=== PATIENT | male | born 1940 | race Caucasian/White ===

== ENCOUNTER 2017-03-31 06:23 | Inpatient (IN) ==
[2017-03-31] MEDS: D5-1/2NS with KCL 20mEq 1,000 ML IV SCH ×2 (07:26→18:01)
[2017-03-31 08:05] VITALS: BMI 28.0
[2017-03-31] MEDS ORDERED: ONDANSETRON 4 MG/2 ML INJECTION IVP PRN (09:18)
--- NOTE | 2017-03-31 10:22 | Anesthesia Preoperative Report ---
Anesthesia Preoperative Record - Date and Time Date: 03/31/17 Preoperative Diagnosis: GI Bleed Proposed Procedure: EGD NPO Since Date: 03/30/17 NPO Since Time: 22:00 Allergies/Adverse Reactions: Allergies Allergy/AdvReac Type Severity Reaction Status Date / Time No Known Allergies Allergy Verified 03/31/17 07:34 - Vital Signs Vital Signs: Temperature 96 F L 03/31/17 07:26 Pulse Rate 57 L 03/31/17 09:00 Respiratory Rate 20 03/31/17 09:00 Blood Pressure 112/59 03/31/17 09:00 Pulse Oximetry 100 03/31/17 09:00 Height and Weight: Height 1.83 m Weight 93.8 kg Body Mass Index 28.0 - Medications Inpatient Medications: Current Medications Potassium Chloride/Dextrose/Sod Cl (D5-1/2ns With Kcl 20meq) 1,000 mls @ 100 mls/hr IV .Q10H POLA Last Admin: 03/31/17 07:26 Dose: 100 mls/hr Ondansetron HCl (Zofran) 4 - 8 mg IVP Q6H PRN PRN Reason: Nausea &/or vomiting Home Medications: Home Medications Medication Instructions Recorded Confirmed Type Aspirin [Aspirin EC] 81 mg PO DAILY #0 01/16/13 03/31/17 History Protonix (Pantoprazole)40 mg 40 mg PO DAILY #30 tab 03/03/17 03/31/17 History tablet,delayed release simvastatin 40 mg tablet 40 mg PO HS 03/03/17 03/31/17 History - Medical History Cardiovascular: Reports: Coronary Artery Disease, Hypertension, Myocardial Infarction Gastrointestional: Reports: Gastroesophageal Reflux Disease Other History: Reports: Blood Transfusions - Surgical History Cardiac Surgeries/Treatments: Reports: Coronary Artery Bypass Graft (4 bypasses 2011) GI Surgery/Treatments: Reports: Hernia Repair (umblical), Colonoscopy (03/19/17) Musculoskeletal Surgery/Tx: Reports: Total Hip Replacement (L 2005), Other ( bone scraping in foot for infection) - Social History Smoking Status: Never smoker Hx Chewing Tobacco Use: No Second Hand Exposure: No Substance Use Type: does not use Alcohol Intake Frequency: does not drink - Pertinent Findings Laboratory: CBC and BMP 03/31/17 08:11 EKG Rhythm: Normal Sinus Rhythm - Physical Exam Respiratory Exam: Present: lungs clear, bilateral breath sounds equal Cardiovascular Exam: Present: regular rate and rhythm, no murmur - Airway Assessment Mallampati Score: II TMD: 3 Fingerbreadths Teeth: chipped teeth/crowns Overall Assessment: no airway concerns - ASA ASA Score: 3 - Plan Anesthesia: General TIVA - Discussion Discussion: Discussed risks/options/alternatives of anesthesia and questions answered. Patient consents. Nursing pain assessment noted. Attestation Statement: Prior to the delivery of any anesthetic medication, I examined the patient, developed the plan, obtained the patient's consent and discussed the risk and benefits of the procedure with the patient/guardian. - Additional Information Seen by Anesthesia: Yes
[2017-03-31] MEDS ORDERED: LIDOCAINE VISCOUS 2% ORAL LIQUID 15ml PO ONE ×2 (10:39→12:00)
--- NOTE | 2017-03-31 10:48 | General Surgery Procedure Note ---
Date of Procedure: 03/31/17 Surgeon: Nancie Postoperative Diagnosis: Acute lower GI tract bleeding Procedure: EGD Estimated Blood Loss: See Anesthesia Record.
--- NOTE | 2017-03-31 10:59 | History and Physical ---
HISTORY OF PRESENT ILLNESS This patient is 76 years old. This patient underwent a total colonoscopy with polypectomy on 03/19/[address] Canada at [facility]. The patient did have a sessile polyp removed from the cecum at the time of the procedure. There was no difficulty with removal of the polyp at the time of the procedure. There was no bleeding at the time of the polyp removal. Pathology report diagnosis on this polyp did show a diagnosis of sessile serrated adenoma. The patient did well following the total colonoscopy procedure from 03/19/2017 up until the morning of 03/31/2017. The patient did not have any rectal bleeding following the colonoscopy up until 03/31/2017. The patient did have a bloody bowel movement at 0200 hours on 03/31/2017. There was some dark red blood passed from the rectum at this time along with some blood which looked a little fresher. The patient felt weak and diaphoretic. An ambulance was called. The patient was transported by ambulance from his home to [facility] at [place], [place]. The patient did undergo evaluation at [facility] at [place], [place]. Vital signs were stable at that time. Hemoglobin was 12.6 and hematocrit was 37.7 at 0420 hours at the time of evaluation at the emergency room at [facility] at [place], [place]. It was thought at the time of this emergency room evaluation that the patient might be having some bleeding from the polypectomy site. The patient did ask to be transferred from the hospital at [facility] to [facility] where he underwent the total colonoscopy with polypectomy procedure for further evaluation of the rectal bleeding. The patient has now been transferred from [facility] at [place], [place] to [facility] and is admitted to the Intensive Care Unit at [facility]. The patient states he has had no further rectal bleeding since the episode at 0200 hours this morning. He is having no abdominal pain. The patient did have a CBC performed on 01/26/2017 prior to the colonoscopy procedure. Hemoglobin was 14.9 and hematocrit was 45.9 at that time. PAST MEDICAL HISTORY Previous Operations. 1. Incision and drainage of abscess at right foot on 10/07/[address] Gerard Buckner at [facility] at [place], [place]. Discharge diagnosis was abscess at right foot. 2. Umbilical hernia repair on 09/11/[address] Sergei Womack at [facility]. 3. Left total hip replacement on 02/23/[address] Leiva at [facility] at [place], [place]. Postoperative diagnosis was degenerative arthritis at left hip. 4. Cardiac catheterization in November [address] Duckworth at [facility] at [place], [place]. The patient was having an acute myocardial infarction at this time. 5. Four-vessel coronary artery bypass operation in November [address] Casas at [facility] at [place], [place]. The patient was having an acute myocardial infarction at this time. 6. Repair of recurrent incarcerated umbilical hernia on 01/17/[address] Canada at [facility] at [place], [place]. Postoperative diagnosis was recurrent incarcerated umbilical hernia. 7. Total colonoscopy with polypectomy on 03/19/[address] Canada at [facility] at [place], [place]. The patient did have a sessile polyp removed from the cecum with a polypectomy at this time. Pathology report diagnosis on this polyp was sessile serrated adenoma polyp. CURRENT MEDICATIONS 1. Aspirin 81 mg one p.o. daily. 2. Protonix 40 mg one p.o. daily. 3. Simvastatin 40 mg one p.o. daily in the a.m. ALLERGY HISTORY The patient has no known allergies to medications. PHYSICAL EXAMINATION VITAL SIGNS: Pulse is 58. Blood pressure is 112/59. Respiratory rate is 19. Height is 1.83 meters. Weight is 93.8 kg. BMI is 28 kg/m2. HEAD, EYES, EARS, NOSE AND THROAT: No abnormalities noted. NECK: No neck masses. CHEST: The patient does have an old median sternotomy incision scar. Lung sounds are clear. HEART: Regular rhythm. No murmurs. ABDOMEN: The patient does have an old transversely oriented supraumbilical incision scar. No abdominal masses. No abdominal tenderness. RECTUM: No rectal masses. There is a small amount of old black blood at the rectum. EXTREMITIES: No abnormalities noted. LABORATORY DATA Hemoglobin was 14.9 and hematocrit was 45.9 on 01/26/2017. Hemoglobin was 12.6 and hematocrit was 37.7 at 0420 hours at the emergency room at [facility] at [place], [place]. Hemoglobin is 12.4 and hematocrit is 37.5 at 0811 hours at [facility]. Platelet count is 253,000. IMPRESSION 1. Acute lower gastrointestinal tract bleeding. 2. Status post total colonoscopy with polypectomy on 03/19/2017 with removal of a sessile polyp from the cecum at this time. 3. Coronary artery disease. 4. Hyperlipidemia. 5. Gastroesophageal reflux disease. PLAN Admit patient to [facility] at this time for observation. The patient will be monitored for gastrointestinal tract bleeding. The patient will be kept n.p.o. for now. Hemoglobin and hematocrit will be monitored. Vital signs will be monitored. The patient will probably undergo esophagogastroduodenoscopy and colonoscopy during the hospitalization to look for the source for the acute gastrointestinal tract bleeding. If there is bleeding from the polypectomy site, this might be able to be controlled with argon beam coagulation of any bleeding point at the polypectomy site. PATIENT EDUCATION I did talk with the patient about the possibility of undergoing esophagogastroduodenoscopy and colonoscopy during this hospitalization. Expected benefits were reviewed. Alternatives were reviewed including simple observation and monitoring of the patient. Potential risks and complications were reviewed. The patient does appear to understand all of this. MTDD
[2017-03-31] MEDS ORDERED: LR 1,000 ML IV SCH (11:00)
[2017-03-31] MEDS ORDERED: LIDOCAINE 5% CREAM 15gm TOP PRN (11:14)
[2017-03-31] MEDS ORDERED: POLYETHYL. GLYCOL 3350 BOTTLE 238 GM PO ONE (11:14)
--- NOTE | 2017-03-31 11:15 | Anesthesia Postoperative Note ---
- Date and Time Date: 03/31/17 Time: 11:15 - Status Patient Participated in Evaluation: Patient Participated in Person Vital Signs: Temperature 96.4 F L 03/31/17 11:05 Pulse Rate 65 03/31/17 11:03 Respiratory Rate 16 03/31/17 11:03 Blood Pressure 104/55 03/31/17 11:03 Pulse Oximetry 100 03/31/17 11:03 Respiratory Function: Airway Patent Cardiovascular Function: Regular Pulse EKG Rhythm: Normal Sinus Rhythm Mental Status: Alert and Oriented Pain Intensity: 0 Hydration: IV Infusing Complications During Recover: None Apparent - Follow-Up Instructions Instructions: Per Surgeon
[2017-03-31] MEDS ORDERED: PROPOFOL 500 MG/50 ML IV ONE (12:00)
--- NOTE | 2017-03-31 14:40 | Operative Note ---
DATE OF OPERATION 03/31/2017 PREOPERATIVE DIAGNOSES 1. Acute gastrointestinal tract bleeding. 2. Status post total colonoscopy with polypectomy with removal of sessile polyp from cecum on 03/19/2017. POSTOPERATIVE DIAGNOSES 1. Hiatal hernia. 2. Acute lower gastrointestinal tract bleeding. 3. Status post total colonoscopy with polypectomy with removal of sessile polyp from cecum on 03/19/2017. OPERATION Esophagogastroduodenoscopy SURGEON Mainor Canada MD ANESTHESIA TIVA ASA CLASS 3 FINDINGS Mucosa at the esophagus, stomach and duodenum appeared normal. There was no bright red blood or old blood anywhere at the upper gastrointestinal tract. No source for bleeding which would lead to acute gastrointestinal tract blood loss was found anywhere at the upper gastrointestinal tract. The patient does have a moderate size hiatal hernia. Findings were otherwise normal throughout the upper gastrointestinal tract. DESCRIPTION OF OPERATION The patient was brought to the endoscopy room. The patient was kept in his ICU bed in the endoscopy room. The patient was placed in left lateral recumbent position in the ICU bed. The patient was premedicated with intravenous sedation medication administered by the nurse pricing actuary. The Olympus upper GI endoscope was used. The upper GI endoscope was introduced into the esophagus. The upper GI endoscope was advanced down through the esophagus and stomach and into the duodenum. The upper GI endoscope was then withdrawn from the duodenum back into the stomach. The upper GI endoscope was retroflexed and the gastroesophageal junction was viewed from below. The upper GI endoscope was straightened out. Stomach was examined further. The upper GI endoscope was then withdrawn out through the stomach and esophagus and removed from the patient. Findings throughout procedure were as described above. The patient did continue to receive intravenous sedation medication administered by the nurse pricing actuary throughout the operation. The patient did tolerate the operation well. YANYD
--- NOTE | 2017-03-31 15:35 | XRay Report ---
Indication: fall PROCEDURE: XR knee LT 2V: Encounter: Initial Comparison: December 06, 2014 Findings: There is no acute fracture, dislocation or malalignment identified. Mild lateral compartment joint space narrowing is worsened. Small osteophytes. No gross joint effusion. Impression: No acute fracture. Mild to moderate lateral degenerative change. .
[2017-03-31] MEDS ORDERED: ACETAMINOPHEN 500 MG TABLET PO PRN (17:45)
[2017-03-31] MEDS ORDERED: MAGNESIUM CITRATE 296ml PO ONE (17:48)
[2017-03-31] MEDS: SIMVASTATIN 40 MG TABLET PO SCH (21:01)
[2017-04-01] MEDS: D5-1/2NS with KCL 20mEq 1,000 ML IV SCH ×2 (03:50→17:11)
[2017-04-01] MEDS: PANTOPRAZOLE 40 MG TABLET PO SCH (06:27)
--- NOTE | 2017-04-01 10:54 | Anesthesia Preoperative Report ---
Anesthesia Preoperative Record - Date and Time Date: 04/01/17 Preoperative Diagnosis: GI Bleed Proposed Procedure: Colonoscopy NPO Since Date: 03/31/17 Allergies/Adverse Reactions: Allergies Allergy/AdvReac Type Severity Reaction Status Date / Time No Known Allergies Allergy Verified 03/31/17 07:34 - Vital Signs Vital Signs: Temperature 96.5 F L 03/31/17 16:51 Pulse Rate 56 L 04/01/17 05:01 Respiratory Rate 19 04/01/17 05:01 Blood Pressure 118/58 04/01/17 05:01 Pulse Oximetry 99 04/01/17 05:01 Height and Weight: Height 1.83 m Weight 93.8 kg Body Mass Index 28.0 - Medications Inpatient Medications: Current Medications Acetaminophen (Tylenol) 500 - 1,000 mg PO Q6H PRN PRN Reason: Discomfort Last Admin: 03/31/17 18:08 Dose: 500 mg Aspirin (Ecotrin) 81 mg PO DAILY [facility] Potassium Chloride/Dextrose/Sod Cl (D5-1/2ns With Kcl 20meq) 1,000 mls @ 100 mls/hr IV .Q10H [facility] Last Infusion: 04/01/17 07:00 Dose: 100 mls/hr Lidocaine (Anecream5) 1 applic TOP PRN PRN Ondansetron HCl (Zofran) 4 - 8 mg IVP Q6H PRN PRN Reason: Nausea &/or vomiting Pantoprazole Sodium (Protonix Tab) 40 mg PO ACB [facility] Last Admin: 04/01/17 06:27 Dose: 40 mg Simvastatin (Zocor) 40 mg PO [facility] Last Admin: 03/31/17 21:01 Dose: 40 mg Home Medications: Home Medications Medication Instructions Recorded Confirmed Type Aspirin [Aspirin EC] 81 mg PO DAILY #0 01/16/13 03/31/17 History Protonix (Pantoprazole)40 mg 40 mg PO DAILY #30 tab 03/03/17 03/31/17 History tablet,delayed release simvastatin 40 mg tablet 40 mg PO HS 03/03/17 03/31/17 History Is Patient on Beta Cassy?: No - Medical History Cardiovascular: Reports: Coronary Artery Disease, High Cholesterol Gastrointestional: Reports: Gastroesophageal Reflux Disease, Gastrointestinal Bleeding - Surgical History Cardiac Surgeries/Treatments: Reports: Cardiac Catheterization, Coronary Artery Bypass Graft (4 bypasses 2011) GI Surgery/Treatments: Reports: Hernia Repair (umblical), Colonoscopy (03/19/17) Musculoskeletal Surgery/Tx: Reports: Total Hip Replacement (L 2005), Other ( bone scraping in foot for infection) Anesthesia Reactions: None Hx Family Anesthesia Reaction: No History of Motion Sickness: No - Social History Smoking Status: Never smoker Hx Chewing Tobacco Use: No Second Hand Exposure: No Substance Use Type: does not use Alcohol Intake Frequency: does not drink - Pertinent Findings Laboratory: CBC and BMP 04/01/17 04:22 EKG Rhythm: Normal Sinus Rhythm - Physical Exam Respiratory Exam: Present: lungs clear, bilateral breath sounds equal Cardiovascular Exam: Present: regular rate and rhythm, no murmur - Airway Assessment Mallampati Score: II TMD: 3 Fingerbreadths Teeth: chipped teeth/crowns Overall Assessment: no airway concerns - ASA ASA Score: 3 - Plan Anesthesia: General TIVA - Discussion Discussion: Discussed risks/options/alternatives of anesthesia and questions answered. Patient consents. Nursing pain assessment noted. Attestation Statement: Prior to the delivery of any anesthetic medication, I examined the patient, developed the plan, obtained the patient's consent and discussed the risk and benefits of the procedure with the patient/guardian. - Additional Information Seen by Anesthesia: Yes
[2017-04-01] MEDS ORDERED: PROPOFOL 500 MG/50 ML VIAL IV ONE ×2 (12:08→13:06)
[2017-04-01] MEDS: LR 1,000 ML IV SCH ×2 (12:28→13:26)
[2017-04-01] MEDS ORDERED: EPHEDRINE 50mg/ml INJECTION ONE (12:56)
--- NOTE | 2017-04-01 13:56 | Anesthesia Postoperative Note ---
- Date and Time Date: 04/01/17 Time: 13:56 - Status Patient Participated in Evaluation: Patient Participated in Person Vital Signs: Temperature 97.6 F 04/01/17 08:00 Pulse Rate 74 04/01/17 12:00 Respiratory Rate 35 H 04/01/17 10:45 Blood Pressure 117/63 04/01/17 11:00 Pulse Oximetry 100 04/01/17 11:15 Respiratory Function: Airway Patent Cardiovascular Function: Regular Pulse EKG Rhythm: Normal Sinus Rhythm Mental Status: Alert and Oriented Pain Intensity: 0 Hydration: IV Infusing Complications During Recover: None Apparent - Follow-Up Instructions Instructions: Per Surgeon
--- NOTE | 2017-04-01 14:04 | General Surgery Procedure Note ---
Date of Procedure: 04/01/17 Surgeon: Nancie Postoperative Diagnosis: Acute lower GI tract bleeding from polypectomy site at cecum. Procedure: Total colonoscopy with control of bleeding at polypectomy site at cecum. Estimated Blood Loss: See Anesthesia Record.
--- NOTE | 2017-04-01 14:09 | Progress Note ---
DATE 04/01/2017 HISTORY This patient did undergo esophagogastroduodenoscopy yesterday. No source for gastrointestinal tract bleeding was found at the upper gastrointestinal tract at this procedure. Hemoglobin was 10 and hematocrit was 32.5 at 1346 hours on 03/31/2017. The patient did undergo a colonic lavage bowel prep on 03/31/2017. Hemoglobin was 11.1 and hematocrit was 39.7 at 1804 hours on 03/31/2017. The patient has had no further rectal bleeding throughout the afternoon or evening yesterday. He has had no further rectal bleeding throughout the night last night or this morning. PHYSICAL EXAMINATION VITAL SIGNS: Pulse is 68. Blood pressure is 117/63. Oxygen saturation is 100 % on room air. LABORATORY DATA Hemoglobin is 12 and hematocrit is 37.4 at 0422 hours this morning. IMPRESSION 1. Acute lower gastrointestinal tract bleeding. 2. Status post total colonoscopy with polypectomy with removal of sessile polyp from the cecum on 03/19/2017. PLAN Colonoscopy by Dr. Canada today. YAZAN
[2017-04-01] MEDS: ASPIRIN *EC* 81 MG TABLET PO SCH (18:47)
[2017-04-01] MEDS: SIMVASTATIN 40 MG TABLET PO SCH (21:19)
--- NOTE | 2017-04-01 22:05 | Operative Note ---
DATE OF OPERATION 04/01/2017 PREOPERATIVE DIAGNOSES 1. Status post total colonoscopy with polypectomy with removal of sessile polyp from cecum on 03/19/2017. 2. Acute lower gastrointestinal tract bleeding. POSTOPERATIVE DIAGNOSES 1. Status post total colonoscopy with polypectomy with removal of sessile polyp from cecum on 03/19/2017. 2. Acute lower gastrointestinal tract bleeding from polypectomy site at cecum. OPERATION Total colonoscopy with argon beam coagulation of polypectomy site at cecum and application of Resolution endoscopic hemoclips at polypectomy site at cecum to control bleeding. SURGEON Dr. Canada [facility] ASA Class 3 FINDINGS The patient did have a polypectomy site at the cecum where he underwent removal of a sessile polyp at total colonoscopy on 03/19/2017. Most of the polypectomy site was covered with white fibrinous exudate. There was one bright red area of granulation tissue at one margin of the polypectomy site which looked like a site where the patient had experienced recent acute gastrointestinal tract bleeding. There was no active bleeding from this site occurring as the site was first visualized at total colonoscopy today. The patient did have some induced pulsatile arterial bleeding occur from this site during argon beam coagulation at this site. This area of bright red tissue at the margin of the polypectomy site was thought to be the source of the recent acute lower gastrointestinal tract bleeding. There were no tumors found anywhere at the colon today. No polyps were seen at the colon today. There were no colonic angiodysplasia lesions. There was no inflammatory bowel disease. No other source for recent acute lower gastrointestinal tract bleeding was seen anywhere else at the colon or rectum. The recent acute gastrointestinal tract bleeding had stopped spontaneously prior to the colonoscopy procedure today. There was concern that it would recur from this site without treatment of the source for bleeding at the polypectomy site. DESCRIPTION OF OPERATION The patient was brought to the cystoscopy room. The patient was placed in left lateral recumbent position in his intensive care unit bed in the cystoscopy room. The patient was premedicated with intravenous sedation medication administered by the nurse fish cake maker. The Olympus colonoscope was used. The colonoscope was introduced into the rectum. The colonoscope was advanced up through the rectum and colon all the way up to the cecum. The appendiceal orifice was clearly identified. The ileocecal valve was clearly identified. The polypectomy site at the cecum was easily identified. There was white fibrinous exudate at most of the base of the polypectomy site. There was one area of bright red tissue which looked like granulation tissue at one margin of the polypectomy site. It was thought that this was the site where recent acute lower gastrointestinal tract bleeding had occurred. It was thought that the patient might experience additional bleeding from this site. A decision was made to treat this site at the polypectomy site to attempt to prevent further recurrent bleeding from this site. Argon beam coagulation was first performed at the polypectomy site. The argon beam financial services associate was used at a power setting of 40 cartwright and at a gas flow rate of 2 liters per minute. The area of bright red tissue at the margin of the polypectomy site was coagulated with the argon beam financial services associate. As this was done, the patient experienced some bright red active pulsatile arterial bleeding from this site. This was largely controlled with additional coagulation of this same site with the argon beam financial services associate. After some additional argon beam coagulation there was only some continued oozing of blood from this site. Air was repeatedly aspirated from the cecum and ascending colon as this was done to avoid any overdistention of the cecum and ascending colon. Only brief pulses of coagulation were used at this site. Because of the continued small amount of oozing of blood from this site, a couple of endoscopic hemoclips were applied to the polypectomy site. A [employer] brand, Resolution endoscopic hemoclip applicator was introduced through the operating channel of the colonoscope and advanced out beyond the end of the colonoscope into the lumen of the cecum. A couple of endoscopic Resolution hemoclips were applied to the polypectomy site. These two hemoclips did control the remaining oozing at the polypectomy site and helped close the polypectomy site. The hemoclips were applied at the same area where the patient had undergone argon beam coagulation. This application of the endoscopic hemoclips did appear to complete hemostasis at the bleeding point at the polypectomy site. Irrigation was performed at the polypectomy site. This area was observed. Hemostasis remained satisfactory. The colonoscope was then withdrawn out through the colon and rectum and removed from the patient. Findings throughout the colonoscopy procedure were as described above. The patient did continue to receive intravenous sedation medication administered by the nurse fish cake maker throughout the operation. The patient did tolerate the operation well. YAZAN
[2017-04-02] MEDS: PANTOPRAZOLE 40 MG TABLET PO SCH (06:24)
[2017-04-02 08:38] VITALS: BP 131/67; PULSE 60; RESP 18; TEMP 97.2; O2SAT 98
[2017-04-02] MEDS: ASPIRIN *EC* 81 MG TABLET PO SCH (09:26)
--- NOTE | 2017-04-02 13:17 | Discharge Instructions ---
Discharge Plan - Med Rec/Dispo Prescriptions: Continue Aspirin [Aspirin EC] 81 mg PO DAILY #0 simvastatin 40 mg tablet 40 mg PO HS Protonix (Pantoprazole)40 mg tablet,delayed release 40 mg PO DAILY #30 tab
--- NOTE | 2017-04-02 15:09 | Progress Note ---
DATE 04/02/2017 HISTORY The patient did undergo total colonoscopy with control of a bleeding point at a polypectomy site at the cecum yesterday. The patient then went back to the Intensive Care Unit after that procedure. The patient was started on a clear liquid diet. The rate of administration of intravenous fluids was decreased. The patient was transferred from the Intensive Care Unit out to room on the Surgical Unit late on the afternoon of 04/01/2017. The patient continued to be on a clear liquid diet. The patient has not had any further rectal bleeding in the last 24 hours. His vital signs have remained stable. Hemoglobin and hematocrit remain stable as described below. PHYSICAL EXAMINATION VITAL SIGNS: Temperature is 97.2 degrees axillary. Pulse is 60. Respiratory rate is 18. Blood pressure is 131/67. Oxygen saturation is 98% on room air. ABDOMEN: The abdomen is soft and nontender. LABORATORY DATA Hemoglobin was 10.9 and hematocrit was 33.7 at 0425 hours today. Hemoglobin was 11.6 and hematocrit was 35.8 at 1148 hours today. IMPRESSION 1. Recent acute lower gastrointestinal tract bleeding from polypectomy site at cecum which appears to be resolved at this time. 2. Mild acute GI tract blood loss anemia which appears to be stable at this time. PLAN Dismiss patient from [facility] today. DISCHARGE MEDICATIONS Resume medications which the patient was taking prior to admission to the hospital. DISCHARGE DISPOSITION Further followup with Dr. Nancie bowman. any recurrence of the acute lower GI tract bleeding. YAZAN
--- NOTE | 2017-04-06 18:19 | Discharge Summary ---
DISCHARGE DIAGNOSES 1. Acute lower gastrointestinal tract bleeding from polypectomy site at cecum. 2. Mild acute GI tract blood loss anemia. 3. Hiatal hernia. 4. Gastroesophageal reflux disease. 5. Coronary artery disease. 6. Hyperlipidemia. OPERATIONS 1. Esophagogastroduodenoscopy on 03/31/2017. 2. Total colonoscopy with argon beam coagulation of polypectomy site at cecum and application of Resolution endoscopic hemoclips at polypectomy site at cecum to control bleeding on 04/01/2017. HOSPITAL COURSE This patient did have a CBC performed on 01/26/2017. Hemoglobin was 14.9 and hematocrit was 45.9 at that time. The patient was admitted to [facility] by Dr. Canada on 03/31/2017. The patient was noted at the time of admission to the hospital to have undergone total colonoscopy with polypectomy on 03/19/2017 with removal of a sessile polyp from the cecum. The patient was known at the time of admission to [facility] to have chronic medical problems including coronary artery disease, hyperlipidemia and gastroesophageal reflux disease. The patient was admitted to the intensive care unit at the time of admission to [facility]. Details of history and physical examination findings at the time of admission to the hospital can be found in the dictated admission history and physical examination report in the chart. Hemoglobin was 12.4 and hematocrit was 37.5 at the time of admission to [facility] on 03/31/2017. The patient was kept n.p.o. at the time of admission. Vital signs were monitored. The patient did undergo esophagogastroduodenoscopy by Dr. Canada on 03/31/2017. The patient was found to have a hiatal hernia at the time of this procedure. There was no evidence of gastrointestinal tract bleeding from the upper gastrointestinal tract at the time of this procedure. Hemoglobin and hematocrit continued to be monitored. Hemoglobin was 10 and hematocrit was 32.5 at 1346 hours on 03/31/2017. The patient did undergo a colonic lavage bowel prep on 03/31/2017 in preparation for colonoscopy on the following day. Hemoglobin was 11.1 and hematocrit was 39.7 at 1804 hours on 03/31/2017. Vital signs remained stable. The patient had no further rectal bleeding throughout the afternoon and evening of 2016. The patient had no further rectal bleeding throughout the night of 03/31/2017 or the morning of 04/01/2017. Hemoglobin was 12 and hematocrit was 37.4 at 0422 hours on the morning of 04/01/2017. The patient did undergo total colonoscopy by Dr. Canada on 04/01/2017. The patient was known to have recently undergone total colonoscopy with polypectomy with removal of a sessile polyp from the cecum on 03/19/2017. The patient was found to have an area suspicious as a site for recent bleeding at the polypectomy site when he underwent the total colonoscopy procedure on 04/01/2017. There was no active bleeding from this site but it was thought that this was the site where the patient had undergone the bleeding at the time of admission to the hospital. The patient did therefore undergo total colonoscopy with argon beam coagulation of the polypectomy site at the cecum and application of Resolution endoscopic hemoclips at the polypectomy site at the cecum to prevent any further recurrent bleeding when he underwent the total colonoscopy procedure on 2016. The patient did tolerate this procedure well. The patient had been kept in the intensive care unit since the time of admission to the hospital. The patient did go back to the intensive care unit after the procedure on 2016. The patient was started on a clear liquid diet following the total colonoscopy procedure on 04/01/2017. The rate of administration of intravenous fluids was decreased. The patient remained stable. The patient was then transferred from the intensive care unit out to a room on the surgical unit later on the afternoon of 04/01/2017. The patient was kept on a clear liquid diet. The patient did not have any further rectal bleeding throughout the day on 04/01/2017. On 04/02/2017, the patient was having no further rectal bleeding. Vital signs were stable. Hemoglobin was 10.9 and hematocrit was 33.7 at 0425 hours on 04/02. Hemoglobin was 11.6 and hematocrit was 35.8 at 1148 hours on 2016. The patient was having no further rectal bleeding. The patient was dismissed from [facility] in stable condition on 04/02/2017. DISCHARGE MEDICATIONS 1. Aspirin 81 mg one p.o. daily. 2. Protonix 40 mg one p.o. daily. 3. Simvastatin 40 mg one p.o. daily in the a.m. DISCHARGE DISPOSITION Further followup with Dr. Canada p.r.n. any recurrence of the acute lower gastrointestinal tract bleeding. DISCHARGE DIET Regular diet. [facility]
== END 2017-04-02 16:05 | disposition home or self-care (01) | DRG 920 ==
LOC: CCU → OBSVTOIN 07:14 → SRG 04-01 18:45
PROVIDERS: ADMIT Surgery; ATTEND Surgery
PROC: END.EGD (2017-03-31 10:30)